=== PATIENT | male | born 1975 | race Caucasian/White ===

== ENCOUNTER → 2016-11-29 | Outpatient (CLI) | payer BC | END | disposition home or self-care (01) | LOC: GMAJ 16:40 | PROVIDERS: ATTEND Family Medicine | DX: R94.5 Abnormal results of liver function studies (principal) ==

== ENCOUNTER → 2016-12-22 | Outpatient (CLI) | payer BC | END | disposition home or self-care (01) | LOC: GMAJ 16:35 | PROVIDERS: ATTEND Family Medicine | DX: M10.072 Idiopathic gout, left ankle and foot (principal) ==

== ENCOUNTER → 2017-04-18 | Outpatient (CLI) | payer BC | LOC: EDSTATUS 09:09 → GMAJ 10:49 → LAB.O 10:49 | PROVIDERS: ATTEND Family Medicine | DX: M10.9 Gout, unspecified (principal) ==

== ENCOUNTER → 2017-10-31 | Outpatient (CLI) | payer BC | LOC: GMAJ 12:06 | PROVIDERS: ATTEND Family Medicine | DX: Z00.00 Encounter for general adult medical examination without abnormal findings (principal) ==

== ENCOUNTER → 2018-12-04 | Outpatient (CLI) | payer BC | LOC: GMAJ 14:06 | PROVIDERS: ATTEND Family Medicine | DX: M10.9 Gout, unspecified (principal); E78.2 Mixed hyperlipidemia; I10 Essential (primary) hypertension ==

== ENCOUNTER → 2020-01-08 | Outpatient (CLI) | payer BC | LOC: GMAJ 10:26 | PROVIDERS: ATTEND Family Medicine | DX: M10.00 Idiopathic gout, unspecified site (principal); E78.2 Mixed hyperlipidemia; R94.5 Abnormal results of liver function studies; I10 Essential (primary) hypertension ==

== ENCOUNTER → 2020-01-14 | Outpatient (CLI) | payer BC ==
--- NOTE | 2020-01-14 12:25 | US ---
PROVIDED CLINICAL HISTORY/REASON FOR EXAM: ABNORMAL RESULTS OF LIVER FUNCTION COMPARISON STUDY: None available. TECHNIQUE: Grayscale and limited doppler examination of the abdomen was obtained. FINDINGS: Pancreas: The visualized portions of the pancreas are unremarkable. Liver: Hepatic steatosis. The liver measures 24 cm. No intrahepatic masses are identified. No significant intrahepatic biliary system dilatation. CBD: Measures 6 mm. Within normal limits for age. Gallbladder: Normal with no stones or wall thickening. Kidneys: Both are normal in size and shape. The right kidney measures 11.0 x 4.8 x 5.4 cm. The left kidney measures 11.9 x 5.6 x 5.5cm. No suspicious masses are seen. No hydronephrosis noted. Spleen: Normal sonographic appearance. The spleen measures 11.9 cm in length. Retroperitoneal structures: IVC is unremarkable in appearance. Aorta is without evidence of aneurysm formation. IMPRESSION: Hepatomegaly with steatosis. Electronically signed by: Jerry Fontaine MD 01/14/2020 12:23 PM CDT
== END ==
LOC: US 08:14
PROVIDERS: ATTEND Family Medicine
DX: R94.5 Abnormal results of liver function studies (principal); K76.0 Fatty (change of) liver, not elsewhere classified; R16.0 Hepatomegaly, not elsewhere classified